=== PATIENT | male | born 1980 | race Caucasian/White ===

== ENCOUNTER 2016-11-30 14:22 | Inpatient (IN) ==
[2016-11-30] MEDS ORDERED: IMODIUM PO PRN (17:52)
[2016-11-30] MEDS ORDERED: BENTYL PO PRN (17:52)
[2016-11-30] MEDS ORDERED: DULCOLAX PR PRN (17:52)
[2016-11-30] MEDS ORDERED: AMBIEN PO PRN (17:52)
[2016-11-30] MEDS ORDERED: SENOKOT PO PRN (17:52)
[2016-11-30] MEDS ORDERED: SALINE LOCK IV FLUID XX ONE (17:52)
[2016-11-30] MEDS ORDERED: TUBERSOL ID ONE (17:52)
[2016-11-30] MEDS ORDERED: ZOFRAN IV PRN (17:52)
[2016-11-30 18:02] LABS: URINE SOURCE VOIDED
[2016-11-30 18:17] LABS: BILIRUBIN URINE NEGATIVE (NEGATIVE); BLOOD URINE NEGATIVE (NEGATIVE); CLARITY CLEAR (CLEAR); COLOR YELLOW; GLUCOSE URINE NEGATIVE (NEGATIVE); LEUKOCYTES URINE TRACE (NEGATIVE); NITRITE URINE NEGATIVE (NEGATIVE); PH URINE 6.5; PROTEIN URINE 1+(30 mg/dL) mg/dL (NEGATIVE); URINE MICROSCOPIC NEEDED? YES; UROBILINOGEN URINE 1+(1 mg/dL)
[2016-11-30 18:18] LABS: URINE CAST NONE SEEN /LPF; URINE CRYSTAL NONE SEEN /HPF; URINE EPITHELIAL CELLS <10 /HPF (<10); URINE WBC <10 /HPF (<10)
[2016-11-30 18:23] LABS: MANUAL DIFF NEEDED? NO
[2016-11-30 18:31] LABS: BASO% 0.2 % (0.0-0.8); EOS# 0.01 X1000 (0.0-0.7); EOS% 0.1 % (0.0-10.0); HEMATOCRIT 39.8 % (42.0-52.0); HEMOGLOBIN 13.7 g/dL (14.0-18.0); IMM GRAN# 0.02 X1000 (0.0-0.04); IMM GRAN% 0.2 % (0.0-0.5); LYMPH# 1.92 X1000 (1.2-3.4); LYMPH% 18.4 % (20.5-51.1); MCH 30.3 PG (27-31); MCHC 34.4 g/dL (33-37); MCV 88.1 FL (81-99); MONO# 0.36 X1000 (0.11-0.59); MONO% 3.5 % (1.7-9.3); MPV 9.2 FL (7.4-10.4); NEUT% 77.6 % (42.2-75.2); PLT 255 X1000 (130-400); RBC 4.52 XMIL (4.7-6.1)
[2016-11-30 18:44] LABS: INR 0.95 (0.86-1.15)
[2016-11-30 18:45] LABS: PTT PL 28.6 Seconds (22.6-43.9)
[2016-11-30 19:03] LABS: AGAP 10; ALKALINE PHOSPHATASE 90 U/L (32-122); AMYLASE 76 U/L (20-200); BUN 13 mg/dL (8-22); CALCIUM 9.5 mg/dL (8.8-10.2); CHLORIDE 105 mmol/L (98-107); COSMO 285; GOT 37 U/L (10-34); GPT 106 U/L (10-44); LIPASE 27 U/L (13-60); POTASSIUM 3.8 mmol/L (3.5-5.1); SODIUM 142 mmol/L (136-145); TCO2 28 mmol/L (25-35); TOTAL PROTEIN 6.8 g/dL (6.3-8.3)
[2016-11-30] MEDS: TYLENOL PO PRN (19:14)
[2016-11-30] MEDS: SUBOXONE 2 MG/0.5 MG SL SCH (19:14)
[2016-11-30] MEDS ORDERED: M.V.I.-12 10 ML, FOLIC ACID 1 MG, MAGNESIUM SULFATE 1 GM, THIAMINE 100 MG in NS 1,000 ML IV ONE (19:30)
[2016-11-30 20:11] LABS: UR AMPHETAMINES QUAL NONE DETECTED (NONE DETECT); UR BARBITUATES QUAL NONE DETECTED (NONE DETECT); UR BENZODIAZEPIN QUAL NONE DETECTED (NONE DETECT); UR CANNABINOIDS QUAL NONE DETECTED (NONE DETECT); UR COCAINE QUAL NONE DETECTED (NONE DETECT); UR MDMA QUAL NONE DETECTED (NONE DETECT); UR METHADONE QUAL NONE DETECTED (NONE DETECT); UR METHAMPHETAMINE QUAL NONE DETECTED (NONE DETECT); UR OPIATES QUAL NONE DETECTED (NONE DETECT); UR OXYCODONE QUAL PRESUMPTIVE POSITIVE (NONE DETECT); UR PCP QUAL NONE DETECTED (NONE DETECT); UR TCA QUAL NONE DETECTED (NONE DETECT)
[2016-11-30] MEDS: PHENERGAN PO PRN (20:25)
[2016-11-30] MEDS: ROBAXIN PO PRN (20:25)
[2016-11-30] MEDS: LIBRIUM PO PRN (20:25)
[2016-12-01] MEDS: SUBOXONE 2 MG/0.5 MG SL SCH (06:28)
--- NOTE | 2016-12-01 08:38 | PROGRESS NOTE ---
DATE: 12/01/2016 SUBJECTIVE: Patient notes he is feeling a lot better. He is having much less myalgias, although still present. He is having less nausea and vomiting. PHYSICAL: Vital Signs: Temperature 97.8, pulse 78, respiratory rate 18, BP 139/90, saturation 98% on room air. General: Patient is well developed, well nourished. He is currently in no real respiratory distress. HEENT: Normocephalic. Neck: Supple. CV: Regular rate. Chest: Clear. ASSESSMENT: 1. Nausea, vomiting. 2. Abdominal pain. 3. Myalgias. 4. Opiate abuse, withdrawal and stabilization. PLAN: We will continue patient on Suboxone. We will increase to 03/29. Continue to follow. Continue symptomatic medications. Continue counseling. cc: Dani Courtney MD
[2016-12-01] MEDS: NICODERM PATCH TD SCH (08:44)
[2016-12-01] MEDS: FOLIC ACID PO SCH (08:44)
[2016-12-01] MEDS: VITAMIN B-1 PO SCH (08:44)
[2016-12-01] MEDS: SUBOXONE 8 MG/2 MG SL SCH ×2 (08:44→20:38)
[2016-12-01] MEDS: PHENERGAN PO PRN ×2 (08:55→20:39)
[2016-12-01] MEDS ORDERED: MULTI-VITAMIN PO SCH (09:00)
[2016-12-01] MEDS: ROBAXIN PO PRN (20:39)
[2016-12-01] MEDS: MOTRIN PO PRN (20:39)
[2016-12-02] MEDS: LIBRIUM PO PRN ×3 (01:54→21:18)
[2016-12-02] MEDS: FOLIC ACID PO SCH (08:08)
[2016-12-02] MEDS: VITAMIN B-1 PO SCH (08:08)
[2016-12-02] MEDS: NICODERM PATCH TD SCH (08:08)
[2016-12-02] MEDS: SUBOXONE 8 MG/2 MG SL SCH ×2 (08:08→21:18)
[2016-12-02] MEDS: THERA M PLUS PO SCH (08:09)
[2016-12-02] MEDS: PHENERGAN PO PRN ×2 (08:18→21:17)
[2016-12-02] MEDS ORDERED: TORADOL IV PRN (08:57)
--- NOTE | 2016-12-02 09:17 | PROGRESS NOTE ---
DATE: 12/02/2016 SUBJECTIVE: Patient notes he is feeling a little bit better. He is still having muscle aches. Still having fatigued. Had a bad night. OBJECTIVE: General: Reviewed. He is awake, alert, oriented. He is in no distress. He is. Lying in the bed watching television. HEENT: Normocephalic, atraumatic. RUIZ. Neck: Supple. CV: Regular rate and rhythm. Chest: Relatively clear. Abdomen: Soft. Extremities: Moves all extremities. Neurologic: No focal changes. Skin: Warm and dry. No rashes. LABS: Reviewed. ASSESSMENT: 1. Nausea and vomiting. 2. Abdominal pain. 3. Myalgias. 4. Paresthesias. 5. Paroxysmal sweating. 6. Opiate abuse, withdrawal, and stabilization. PLAN: We will add Toradol today. We will not increase his Suboxone as he currently is already on 8 twice a day. We will continue to follow. Continue education. Further orders as needed. cc: Dani Courtney MD
[2016-12-02] MEDS: MAALOX PLUS LIQUID PO PRN ×2 (12:05→21:23)
[2016-12-02] MEDS: ROBAXIN PO PRN ×2 (14:17→21:18)
[2016-12-02] MEDS: MOTRIN PO PRN ×2 (14:17→21:17)
[2016-12-03] MEDS: MAALOX PLUS LIQUID PO PRN (05:46)
[2016-12-03] MEDS: PHENERGAN PO PRN (05:51)
[2016-12-03] MEDS: ROBAXIN PO PRN (05:51)
[2016-12-03] MEDS: LIBRIUM PO PRN (05:51)
[2016-12-03] MEDS: TYLENOL PO PRN (05:51)
[2016-12-03 07:53] VITALS: BP 163/91
[2016-12-03] MEDS: FOLIC ACID PO SCH (10:05)
[2016-12-03] MEDS: NICODERM PATCH TD SCH (10:05)
[2016-12-03] MEDS: THERA M PLUS PO SCH (10:05)
[2016-12-03] MEDS: SUBOXONE 8 MG/2 MG SL SCH (10:05)
[2016-12-03] MEDS: VITAMIN B-1 PO SCH (10:05)
--- NOTE | 2016-12-12 08:48 | HISTORY AND PHYSICAL ---
CHIEF COMPLAINT: Nausea and vomiting. HISTORY OF PRESENT ILLNESS: Patient is a 36-year-old male, who presented to [facility] program secondary to opiate withdrawal. Notes that his symptoms have become too severe at home. He has had decreased oral intake. He has had decreased urinary output. He has had increased jitteriness, nervousness. Increased insomnia. Positive nausea and vomiting. SOCIAL HISTORY: The patient is . He is on disability. He lives at home in [place] [facility]. SUBSTANCE ABUSE HISTORY: Patient does not drink. He began using opiates at age 24. Currently takes 3-4 of 30 mg oxycodone a day. Does not smoke or use other illicit substances. PAST MEDICAL HISTORY: Significant for hypertension. He was in an opiate treatment facility in 2013 and again in 2014. He stayed sober for several weeks and then started re-abusing. REVIEW OF SYSTEMS: The CINA score is 18 secondary to nausea, vomiting, occasional dry heaves, uncontrollable shivering. Is moderately restless and fidgety, occasional skin crawling. He is unable to sleep at night. Has had decreased oral intake. Decreased urinary output. Occasional headaches. Denies any fevers, chills. Denies dysuria, frequency, urgency. Denies hesitancy. Denies polyuria, polydipsia. Denies skin rashes, weight loss, or weight gain. FAMILY HISTORY: Noncontributory. PHYSICAL EXAMINATION: VITAL SIGNS/GENERAL: Reviewed and stable. Patient is awake, alert, oriented. He is currently in no respiratory distress. 98% saturation on room air. Blood pressure is stable. Heart rate 85. HEENT: Normocephalic, atraumatic. RUIZ. NECK: Supple. CV: Regular rate. CHEST: Relatively clear. ABDOMEN: Soft. EXTREMITIES: Moves all extremities well. NEUROLOGIC: No focal neurological changes. SKIN: Warm and dry. No rashes. LABS: Reviewed. ASSESSMENT: 1. Nausea, vomiting. 2. Abdominal pain. 3. Tremors. 4. Myalgias. 5. Paresthesias. 6. Opiate abuse, withdrawal, and stabilization. 7. Hypertension. PLAN: We will admit patient to [facility]. Treat him symptomatically for stabilization of his opiate withdrawal. We will continue to follow his blood pressure. Further orders as needed. cc: Dani Courtney MD
--- NOTE | 2016-12-13 07:44 | DISCHARGE SUMMARY ---
ADMISSION DATE: 11/30/2016 DISCHARGE DATE: 12/03/2016 DISCHARGE DIAGNOSES: 1. Nausea and vomiting. 2. Abdominal pain. 3. Tremors. 4. Myalgias. 5. Mild paresthesias. 6. Paroxysmal sweating. 7. Opiate abuse, withdrawal, and stabilization. 8. Hypertension. CONSULTATIONS: None. PROCEDURES: None. BRIEF HOSPITAL COURSE: Patient is a 36-year-old male who was admitted as on the [facility]. Treated in usual fashion. Placed on Suboxone for symptomatic treatment of his opiate withdrawal symptoms. Thankfully he had an uneventful hospital course. On discharge, he was awake, alert. He was in no distress. He is feeling better and therefore, he will be discharged home. DISPOSITION: 35minutes was spent in discharge planning and instructions. We discussed with patient he needs to avoid all persons, places, situations which he has been using and abusing in the past. He needs outpatient life counseling as well as drug counseling. He will follow up with a Suboxone treatment facility of choice. cc: Dani Courtney MD
== END 2016-12-03 14:09 | disposition home or self-care (01) ==
LOC: P.DIRADM 14:43 → P.MEDSURG 15:51
PROVIDERS: ADMIT Family Medicine; ATTEND Family Medicine